=== PATIENT | female | born 1945 | race Caucasian/White ===

== ENCOUNTER 2016-06-11 08:04 | Observation (INO) | payer BC, OTHER ==
--- NOTE | 2016-06-11 08:31 | PDOC ---
History of Present Illness - General History Source: Patient Exam Limitations: Language Barrier (Vincentian speaking) - History of Present Illness Initial Comments: 06/11/16 08:50 [facility]: [id number]. This is a 71 year old Vincentian speaking female with a PMH of HTN , HDL, thyroid disease, DM, Asthma, who presents to ED with chest pain and nausea that started this morning before having scheduled stress test. The pt started feeling nausea, headache, dizziness. She is also complaining of constant chest pain, located in mid chest, radiating to right chest and back, 5/ 10 in severity.She states that the pain has been present for several months but she describes it as discomfort. She is unsure if her pain is worse with physical activity. She denies SOB, cough, palpitations. She denies dysuria, vomiting, diarrhea, constipation, fever, chills. She denies weakness, numbness. PCP: Dr. Jacoby Smith <Rosa Ornelas - Last Filed: 06/11/16 12:11> <Solomon Otero - Last Filed: 06/11/16 12:49> - General Chief Complaint: Nausea Stated Complaint: DIZZINESS,Headache, nausea Time Seen by Provider: 06/11/16 08:30 Past History - Past Medical History Asthma: Yes Diabetes: Yes (controlled) HTN: Yes Hypercholesterolemia: Yes Thyroid Disease: Yes - Surgical History Abdominal Surgery: Yes (ovary removal) Cholecystectomy: Yes Orthopedic Surgery: Yes (neck surgery) - Family Disease History Family Disease History: Diabetes: Father (HTN), Mother (HTN), CA: Sister (colon ca), Other: Father, Mother, Brother (HTN) - Psycho/Social/Smoking Cessation Hx Suicidal Ideation: No Smoking History: Former smoker (quit 18 years ago) Have you smoked in the past 12 months: No If you are a former smoker, when did you quit?: 1999 Information on smoking cessation initiated: No Hx Alcohol Use: No Drug/Substance Use Hx: No Substance Use Type: None <Rosa Ornelas - Last Filed: 06/11/16 12:11> <Solomon Otero - Last Filed: 06/11/16 12:49> - Past Medical History Allergies/Adverse Reactions: Allergies Allergy/AdvReac Type Severity Reaction Status Date / Time No Known Allergies Allergy Verified 06/11/16 08:09 Review of Systems - Review of Systems Able to Perform ROS?: Yes Comments:: 06/11/16 09:16 REVIEW OF SYSTEMS CONSTITUTIONAL: Absent: fever, chills, diaphoresis, generalized weakness, malaise, loss of appetite, weight change HEENT: Absent: rhinorrhea, nasal congestion, throat pain, difficulty swallowing, CARDIOVASCULAR:chest pain, Absent: syncope, palpitations, irregular heart rate, lightheadedness, peripheral edema RESPIRATORY: Absent: cough, shortness of breath, dyspnea with exertion, orthopnea, wheezing GASTROINTESTINAL: nausea, Absent: abdominal pain, abdominal distension, vomiting, diarrhea, constipation GENITOURINARY: Absent: dysuria, frequency, urgency, hesitancy, hematuria MUSCULOSKELETAL: shoulder pain, knee pain Absent: myalgia, joint swelling, back pain, neck pain SKIN: Absent: rash, itching, pallor NEUROLOGIC: headache Absent: focal weakness or paresthesias, dizziness, unsteady gait, seizure, mental status changes Is the patient limited Telugu proficient: Yes <Rosa Ornelas - Last Filed: 06/11/16 12:11> *Physical Exam - Vital Signs Last Vital Signs Temp Pulse Resp BP Pulse Ox 97.9 F 92 H 18 141/67 96 06/11/16 08:07 06/11/16 08:07 06/11/16 08:07 06/11/16 08:07 06/11/16 08:07 - Physical Exam Comments: 06/11/16 09:14 GENERAL: The patient is awake, alert, and fully oriented, in no acute distress. HEAD: Normal with no signs of trauma. EYES: PERRL, extraocular movements intact, sclera anicteric, conjunctiva clear. ENT: Ears normal, nares patent, oropharynx clear without exudates, moist mucous membranes. NECK: Trachea midline, full range of motion, supple. LUNGS: Breath sounds equal, crackles at bases bilaterally, no wheezes, no accessory muscle use. HEART: Regular rate and rhythm, S1, S2 without murmur, rub or gallop. ABDOMEN: Soft, nontender, nondistended, normoactive bowel sounds, no guarding, no rebound, no hepatosplenomegaly, no masses. EXTREMITIES: no edema. NEUROLOGICAL: Normal speech, no facial asymmetry, no tongue dendiation, motor 5 /5, gait not observed. PSYCH: Normal mood, normal affect. SKIN: Warm, dry, normal turgor, no rashes, vertical scar in lower abdomen, scar in cervical spine. <AurelianoMukundprosperRosa - Last Filed: 06/11/16 12:11> - Vital Signs Last Vital Signs Temp Pulse Resp BP Pulse Ox 97.9 F 86 16 132/70 96 06/11/16 08:07 06/11/16 08:48 06/11/16 08:48 06/11/16 08:48 06/11/16 08:48 <Branden,Solomon - Last Filed: 06/11/16 12:49> Heart Score/ECG Review - History History: Moderately suspicious - Electrocardiogram EKG: Normal - Age Age: >/= 65 - Risk Factors Risk Factors Heart Score: Yes Hx Hypercholesterolemia, Yes Hx Hypertension, Yes Hx Diabetes, Yes Smoking History Based on the list above the patient has:: >/=3 risk factors or Hx atherosclerotic disease - Troponin Troponin: </= normal limit - Score Heart Score - Total: 5 <AurelianoMukundprosperRosa - Last Filed: 06/11/16 12:11> - ECG Impressions Comment:: 06/11/16 10:32 Twelve-lead EKG was performed and reviewed by me. There is normal sinus rhythm with a normal rate. Rate of 87 The axis is normal. The intervals are normal. There is normal R wave progression There are no ST or T wave abnormalities. No significant changes when compared with EKG dated 01/17/2006 Impression: Normal twelve-lead EKG <Solomon Otero - Last Filed: 06/11/16 12:49> ED Treatment Course - LABORATORY CBC & Chemistry Diagram: 06/11/16 09:00 06/11/16 09:00 <AurelianoMukundprosperRosa - Last Filed: 06/11/16 12:11> - LABORATORY CBC & Chemistry Diagram: 06/11/16 09:00 06/11/16 09:00 - ADDITIONAL ORDERS Additional order review: Laboratory Results 06/11/16 09:00 Sodium 140 Potassium 3.8 Chloride 105 Carbon Dioxide 29 Anion Gap 6 L BUN 16 Creatinine 0.6 Random Glucose 105 Calcium 9.0 Troponin I < 0.02 06/11/16 09:00 RBC 4.51 MCV 89.4 MCHC 33.1 RDW 14.1 MPV 9.2 - RADIOLOGY Radiology Studies Ordered: Category Date Time Status HEAD CT WITHOUT CONTRAST [CT] Stat CT Scan 06/11/16 10:10 Ordered CHEST X-RAY PORTABLE* [RAD] Stat Radiology 06/11/16 10:06 Taken - Medications Given in the ED: ED Medications Discontinued Medications Generic Name Dose Route Start Last Admin Trade Name Gera PRN Reason Stop Dose Admin Aspirin 324 mg 06/11/16 10:07 06/11/16 10:14 Asa - PO 06/11/16 10:08 324 mg ONCE ONE Administration Meclizine HCl 25 mg 06/11/16 10:05 06/11/16 10:14 Antivert - PO 06/11/16 10:06 25 mg ONCE ONE Administration Metoclopramide HCl 10 mg 06/11/16 10:05 06/11/16 10:14 Reglan Injection - IVPUSH 06/11/16 10:06 10 mg ONCE ONE Administration <Solomon Otero - Last Filed: 06/11/16 12:49> Medical Decision Making - Medical Decision Making 06/11/16 09:23 THis is a 71 year old female who presents with chest pain, nausea, headache and dizziness that started today. Differential diagnosis incluse possible ACS, Asthma exacerb, COPD. We ordered Troponins, EKG, CBC, BMP, CK MB, CXR. 06/11/16 10:14 The pt is complaining of dizziness this AM and double vision that resolved now. We will add CT head. 06/11/16 10:45 CXR shows no acute pathology, first Troponin nl. We called Dr. Vu which is covering for Dr. Smith. 06/11/16 11:21 We are waiting for response from Dr. Vu for over an hour. 06/11/16 11:[address] reviewed, no acute pathology. <Rosa Ornelas - Last Filed: 06/11/16 12:11> *DC/Admit/Observation/Transfer <Rosa Ornelas - Last Filed: 06/11/16 12:11> - Discharge Dispostion Admit: Yes <Solomon Otero - Last Filed: 06/11/16 12:49> Diagnosis at time of Disposition: Chest pain Qualifiers: Chest pain type: unspecified Qualified Code(s): R07.9 - Chest pain, unspecified - Discharge Dispostion Condition at time of disposition: Guarded
[2016-06-11 09:22] LABS: MCH 29.6 pg (25.7-33.7); MCHC 33.1 g/dl (32.0-36.0); MEAN CELL VOLUME 89.4 fl (80-96); MEAN PLT VOLUME 9.2 fl (7.5-11.1); PLATELET COUNT 219 K/MM3 (134-434); RDW 14.1 % (11.6-15.6); WHITE BLOOD COUNT 6.4 K/mm3 (4.0-10.0)
[2016-06-11 09:38] LABS: ANION GAP 6 (8-16); CO2 29 mmol/L (21-32); CREATININE 0.6 mg/dL (0.55-1.02); GLUCOSE,RANDOM 105 mg/dL (74-106)
[2016-06-11 09:40] LABS: TROPONIN I < 0.02 ng/ml (0.00-0.05)
[2016-06-11] MEDS ORDERED: METOCLOPRAMIDE HCL INJECTION 10 MG/2 ML VIAL IVPUSH ONE (10:05)
[2016-06-11] MEDS ORDERED: MECLIZINE HCL 25 MG TABLET (FP) PO ONE (10:05)
[2016-06-11] MEDS ORDERED: ASPIRIN 81 MG CHEWABLE TABLETS PO ONE ×2 (10:07)
[2016-06-11] MEDS ORDERED: ASPIRIN 325 MG TABLET ONE (10:10)
[2016-06-11] MEDS ORDERED: METOCLOPRAMIDE HCL INJECTION 10 MG/2 ML VIAL ONE (10:10)
[2016-06-11] MEDS ORDERED: MECLIZINE HCL 25 MG TABLET (FP) ONE (10:10)
--- NOTE | 2016-06-11 10:10 | PDOC ---
Attending Attestation - Resident Resident Name: Rosa Ornelas - ED Attending Attestation I have performed the following: I have examined & evaluated the patient, The case was reviewed & discussed with the resident, I agree w/resident's findings & plan - HPI HPI: 06/11/16 10:05 71y F hx of htn, hl, dm, presents with chest pain, this morning when she woke up that is pressure like in the substerna lregio nassociated with mild nausea. Pt staets she frequently has similar episodes of pain. Pt also endorses feeling lightheaded/vertiginous with mild headache since this morning, she was pending a stress test but because of her sypmtoms the ysent her here for evaluation. pts as documented by resident, including normal neuro exam and no lateralizing findihgs, her cerebellar exam was limited due to hip pain and shoulder pain. suspect vertigo - will give meclizine/reglan will obtain CT head as unable to do full cerebellar exam due to limitations of her arhtirits/joint pain ekg shows NSR, rat e o f87 with no ischemic changes. will btain trops and pts HEART score is 5, will observe for evaluation of her chest pain . - Physicial Exam PE: 06/12/16 08:25 see above - Medical Decision Making 06/12/16 08:25 see above
--- NOTE | 2016-06-11 11:35 | EKG ---
Test Reason : Blood Pressure : / mmHG Vent. Rate : 087 BPM Atrial Rate : 087 BPM P-R Int : 144 ms QRS Dur : 068 ms QT Int : 372 ms P-R-T Axes : 075 037 063 degrees QTc Int : 447 ms POOR DATA QUALITY, INTERPRETATION MAY BE ADVERSELY AFFECTED NORMAL SINUS RHYTHM NORMAL ECG WHEN COMPARED WITH ECG OF 17-JAN-2006 20:54, NO SIGNIFICANT CHANGE WAS FOUND Confirmed by KATHRYN TAVAREZ, ANDRES ([id number]) on 06/11/2016 11:34:42 AM Referred By: Confirmed By:ANDRES PERALTA MD
[2016-06-11 13:40] VITALS: BMI 26.4
[2016-06-11] MEDS ORDERED: INFLUENZA VACCINE 45 MCG/0.5 ML (MDV 16-17) IM ONE (13:40)
--- NOTE | 2016-06-11 14:59 | CONSULT ---
Consult Consult Specialty:: Cardiology Referred by:: Dra Ortiz Reason for Consultation:: Chest pain - History of Present Illness Chief Complaint: nausea, dizziness, headaches and chest pain History of Present Illness: 71 yo female , past smoker, with hx of HTN, HLD, DM, asthma, sent to ER from cardiovascular where she was supposed to have a tress test for the above complaints Patient denies any hx of IA, CHF. However, over the last few months, she has been having chest pain -. mostly woke up her at night and less frequently during day, at rest an don exertion. The pain is described as a burning/ pressure sensation and is reproducible with deep breathing. It is sometimes accompanied by palpitations. She gets palpitations independent of the CP also. She gets tired on exertion, but doesn't walk much since her back surgery, as she gets upper back pain an d leg numbness/pain. She saw Dr Smith last week and he referred her to Dr Deborah Sesay, cardiology -. she sent her for the above-mentioned stress test. Pat says while filling out papers for the stress test, she felt nauseous, dizzy , had a headache and also mild chest pain ("pequenito"). The pain quickly resolved. She gets regular headaches. She also drink >10 cups of coffee a day (her says "less than 20"). She had a cup last night. In the ER, she was treated for possible vertigo with meclizine/reglan. 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: Other (chronic headaches) Cardio/Vascular: Yes: HTN, Hyperlipdemia Pulmonary: Yes: Asthma ...: No Musculoskeletal: Yes: Osteoarthritis, Other (upper back, neck pain) Endocrine: Yes: Diabetes Mellitus - Alcohol/Substance Use Hx Alcohol Use: No History of Substance Use: reports: Cocaine - Smoking History Smoking history: Former smoker (1ppd for many years -> quit 18 years ago) Have you smoked in the past 12 months: No If you are a former smoker, when did you quit?: 1999 - Social History Usual Living Arrangement: With Spouse Home Medications - Allergies Allergies/Adverse Reactions: Allergies Allergy/AdvReac Type Severity Reaction Status Date / Time No Known Allergies Allergy Verified 06/11/16 08:09 - Home Medications Home Medications: Ambulatory Orders Albuterol Sulfate [Proair Respiclick] 2 puff IH Q6H 06/11/16 Amlodipine Besylate 5 mg PO DAILY 06/11/16 Linaclotide [Linzess] 145 mcg PO DAILY 06/11/16 Omeprazole 40 mg PO DAILY 06/11/16 Tiotropium Br/Olodaterol HCl [Stiolto Respimat Inhal [place]] 2 puff IH DAILY Tramadol HCl 50 mg PO TID PRN 06/11/16 Family Disease History - Family Disease History Family Disease History: Diabetes: Brother (of CVA at 71, had HTN, DM. Another brother with CVA at 56,also with HTN, DM) Other Family History: has 8 living siblings. Lost one Review of Systems - Review of Systems Constitutional: reports: No Symptoms Eyes: reports: No Symptoms HENT: reports: No Symptoms Neck: reports: Pain on Movement Cardiovascular: reports: Chest Pain (as in HPI) Respiratory: reports: SOB on Exertion Gastrointestinal: reports: Nausea Genitourinary: reports: No Symptoms Musculoskeletal: reports: Back Pain, Other (leg pain) Neurological: reports: Dizziness, Headache Psychiatric: reports: No Symptoms Physical Exam Vital Signs: Vital Signs Temperature 97.8 F 06/11/16 13:26 Pulse Rate 98 H 06/11/16 13:26 Respiratory Rate 20 06/11/16 13:26 Blood Pressure 144/61 06/11/16 13:26 O2 Sat by Pulse Oximetry (%) 96 06/11/16 13:26 Constitutional: Yes: Obese Eyes: Yes: Conjunctiva Clear HENT: Yes: Atraumatic Neck: Yes: Supple Cardiovascular: Yes: Regular Rate and Rhythm. No: Murmur Respiratory: Yes: CTA Bilaterally Gastrointestinal: Yes: Normal Bowel Sounds, Soft, Abdomen, Obese. No: Tenderness Extremities: Yes: Other (warm) Edema: No Peripheral Pulses WNL: Yes Neurological: Yes: Alert, Oriented Psychiatric: Yes: Alert, Oriented Imaging - Results Chest X-ray: Report Reviewed, Image Reviewed EKG: Report Reviewed, Image Reviewed (SR, no acute changes) Assessment/Plan 71 yo female with the above history, here with nausea, dizziness, headaches and mild chest pain while in CV fro stress test. No evidence of ACS so far. Pt's description of symptoms put more emphasis on the nausea/dizziness/headaches , rather than the CP. However, she was getting the stress test for atypical CP , which she describes mostly at night, worse with deep breathing. She says she had to hold her breath when she had it at times I wonder about GERD -. pt denies hx but does take omeprazole The symptoms that brought her to the ER may have been from being NPO. She gets regular headaches and is a heavy coffee drinker (> 10 cups) However, she does have CAD risk factors, including DM and I think it is reasonable to rule her out Should be on ROSLYN-I/ARB given DM Rec: Telemetry Serial trop I with EKGs Ramipril 5 /d Low dose BB -. toprol XL 25/d ASA 81/d Fasting lipids, TFTs If rules out, will try to do stress nuclear in AM Thanks! We'll follow!
[2016-06-11] MEDS: RAMIPRIL 5 MG CAPSULE (FP) PO SCH (16:27)
[2016-06-11] MEDS: METOPROLOL SUCCINATE 25 MG TAB.SR.24H (FP) PO SCH (16:27)
[2016-06-12 09:30] LABS: THYROID STIMULATING HORMONE 0.58 uIU/ml (0.358-3.74)
[2016-06-12 09:37] VITALS: BP 134/60; PULSE 77; TEMP 99
[2016-06-12] MEDS ORDERED: DIPYRIDAMOLE STRESS TEST IVPB ONE (10:00)
[2016-06-12] MEDS ORDERED: WATER IVPB ONE (10:00)
[2016-06-12] MEDS ORDERED: DEXTROSE 5% IVPB ONE (10:00)
[2016-06-12] MEDS ORDERED: AMINOPHYLLINE 250 MG/10 ML VIAL ONE (12:04)
--- NOTE | 2016-06-12 13:10 | HP ---
Admitting History and Physical - Primary Care Physician PCP: Alysia Vu - Admission Chief Complaint: chest pain History of Present Illness: 71y F hx of htn, hl, dm, presents with chest pain, this morning when she woke up that is pressure like in the substerna lregio nassociated with mild nausea. Pt staets she frequently has similar episodes of pain. Pt also endorses feeling lightheaded/vertiginous with mild headache since this morning, she was pending a stress test but because of her sypmtoms the ysent her here for evaluation. pts as documented by resident, including normal neuro exam and no lateralizing findihgs, her cerebellar exam was limited due to hip pain and shoulder pain. suspect vertigo - will give meclizine/reglan will obtain CT head as unable to do full cerebellar exam due to limitations of her arhtirits/joint pain ekg shows NSR, rat e o f87 with no ischemic changes. will btain trops and pts HEART score is 5, will observe for evaluation of her chest pain . 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) Cardiovascular: Yes: HTN, Hyperlipdemia Pulmonary: Yes: Asthma ...: No Musculoskeletal: Yes: Osteoarthritis, Other (upper back, neck pain) Endocrine: Yes: Diabetes Mellitus - Smoking History Smoking history: Former smoker (1ppd for many years -> quit 18 years ago) Have you smoked in the past 12 months: No If you are a former smoker, when did you quit?: 1999 - Alcohol/Substance Use Hx Alcohol Use: No History of Substance Use: reports: Cocaine Home Medications - Allergies Allergies/Adverse Reactions: Allergies Allergy/AdvReac Type Severity Reaction Status Date / Time No Known Allergies Allergy Verified 06/11/16 08:09 - Home Medications Home Medications: Ambulatory Orders Albuterol Sulfate [Proair Respiclick] 2 puff IH Q6H 06/11/16 Linaclotide [Linzess] 145 mcg PO DAILY 06/11/16 RX: Amlodipine Besylate 5 mg PO DAILY 06/11/16 RX: Omeprazole 40 mg PO DAILY 06/11/16 RX: Tramadol HCl 50 mg PO TID PRN 06/11/16 Tiotropium Br/Olodaterol HCl [Stiolto Respimat Inhal [place]] 2 puff IH DAILY Family Disease History - Family Disease History Family Disease History: Diabetes: Brother (of CVA at 71, had HTN, DM. Another brother with CVA at 56,also with HTN, DM) Other Family History: has 8 living siblings. Lost one Review of Systems - Review of Systems Constitutional: reports: No Symptoms Eyes: reports: No Symptoms HENT: reports: No Symptoms Neck: reports: No Symptoms Cardiovascular: reports: Chest Pain, Palpitations Respiratory: reports: SOB Gastrointestinal: reports: No Symptoms Genitourinary: reports: No Symptoms Musculoskeletal: reports: No Symptoms Integumentary: reports: No Symptoms Neurological: reports: No Symptoms Endocrine: reports: No Symptoms Hematology/Lymphatic: reports: No Symptoms Psychiatric: reports: No Symptoms Physical Examination Vital Signs: Vital Signs Temperature 99 F 06/12/16 09:36 Pulse Rate 77 06/12/16 09:36 Respiratory Rate 20 06/12/16 09:36 Blood Pressure 134/60 06/12/16 09:36 O2 Sat by Pulse Oximetry (%) 97 06/12/16 09:00 Constitutional: Yes: Mild Distress Eyes: Yes: WNL HENT: Yes: WNL Neck: Yes: WNL Cardiovascular: Yes: WNL Respiratory: Yes: WNL Gastrointestinal: Yes: WNL Renal/: Yes: WNL Musculoskeletal: Yes: WNL Extremities: Yes: WNL Edema: No Peripheral Pulses WNL: Yes Integumentary: Yes: WNL Wound/Incision: Yes: Clean/Dry Neurological: Yes: WNL ...Motor Strength: WNL Psychiatric: Yes: WNL Imaging - Results Chest X-ray: Report Reviewed Problem List - Problems (1) Chest pain Code(s): R07.9 - CHEST PAIN, UNSPECIFIED Qualifiers: Chest pain type: unspecified Qualified Code(s): R07.9 - Chest pain, unspecified Assessment/Plan admit telemetry cardiology workup stress test lipid panel tsh
--- NOTE | 2016-06-12 13:20 | DS ---
Physical Examination Vital Signs: Vital Signs Temperature 99 F 06/12/16 09:36 Pulse Rate 77 06/12/16 09:36 Respiratory Rate 20 06/12/16 09:36 Blood Pressure 134/60 06/12/16 09:36 O2 Sat by Pulse Oximetry (%) 97 06/12/16 09:00 Constitutional: Yes: No Distress Eyes: Yes: WNL HENT: Yes: WNL Neck: Yes: WNL Cardiovascular: Yes: WNL Respiratory: Yes: WNL Gastrointestinal: Yes: WNL ...Rectal Exam: Yes: WNL Renal/: Yes: WNL Breast(s): Yes: WNL Musculoskeletal: Yes: WNL Extremities: Yes: WNL Integumentary: Yes: WNL Wound/Incision: Yes: Clean/Dry Neurological: Yes: WNL ...Motor Strength: WNL Psychiatric: Yes: WNL Discharge Summary Reason For Visit: CHEST PAIN Current Active Problems Chest pain (Acute) Procedures: Principal: stress test Other Procedures: labs Hospital Course: admitted for chest pain stress test negative, dc home Condition: Stable - Instructions Diet, Activity, Other Instructions: admitted for chest pain, stress test normal no acute changes Referrals: Jacoby Smith [Primary Care Provider] - Disposition: HOME - Home Medications Comprehensive Discharge Medication List: Ambulatory Orders Albuterol Sulfate [Proair Respiclick] 2 puff IH Q6H 06/11/16 Omeprazole 40 mg PO DAILY 06/11/16 Tiotropium Br/Olodaterol HCl [Stiolto Respimat Inhal [place]] 2 puff IH DAILY Tramadol HCl 50 mg PO TID PRN 06/11/16 Atorvastatin Ca [Lipitor] 10 mg PO HS #30 tablet 06/12/16 Metoprolol Succinate [Toprol XL -] 25 mg PO DAILY #30 06/12/16 Ramipril [Altace] 5 mg PO DAILY #30 06/12/16
[2016-06-12] MEDS: METOPROLOL SUCCINATE 25 MG TAB.SR.24H (FP) PO SCH (14:02)
[2016-06-12] MEDS: RAMIPRIL 5 MG CAPSULE (FP) PO SCH (14:02)
[2016-06-12] MEDS ORDERED: ATORVASTATIN CA 10 MG TABLET (FP) PO SCH (22:00)
== END 2016-06-12 14:58 | disposition home or self-care (01) ==
LOC: JER 08:04 → JERBED 12:49 → J4W 13:57
PROVIDERS: ADMIT Family Medicine; ATTEND Family Medicine
DX: R07.9 Chest pain, unspecified (principal); I10 Essential (primary) hypertension; E78.5 Hyperlipidemia, unspecified; E11.9 Type 2 diabetes mellitus without complications
CPT/HCPCS: 36415; 70450-TC; 71010-TC; 78452-TC; 80048; 80061; 82553; 83721; 84439; 84443; 84484; 85027; 93005; 93010; 93017; 99281-25; A9502; G0378; J1245; Q2037